=== PATIENT | male | born 1980 | race Caucasian/White ===

== ENCOUNTER 2019-07-26 17:11 | Outpatient (CLI) | payer OTHER | END 2019-07-26 17:12 | disposition home or self-care (01) | LOC: COV 17:11 | PROVIDERS: ATTEND Family Medicine | DX: R05 Cough (principal) ==

== ENCOUNTER 2019-08-10 12:37 | Outpatient (CLI) | payer OTHER ==
--- NOTE | 2019-08-11 02:56 | CT Report ---
Reason: KIDNEY STONES Procedure Date: 08/10/2019 Accession Number: [id number] / [id number] Procedure: CT - Abdomen/Pelvis WO CPT Code: Final Report FULL RESULT: EXAM: CT ABDOMEN AND PELVIS (CT KUB) EXAM DATE: 08/10/2019 12:50 PM. CLINICAL HISTORY: Pain for 4 months. History of kidney stone removal. Kidney stones. COMPARISONS: None. TECHNIQUE: Routine axial helical CT imaging was performed through the abdomen and pelvis without IV contrast. Reconstructions: Coronal and sagittal. In accordance with CT protocol optimization, one or more of the following dose reduction techniques were utilized for this exam: automated exposure control, adjustment of mA and/or KV based on patient size, or use of iterative reconstructive technique. FINDINGS: Lung Bases: Unremarkable. Right Kidney/Ureter: Nonobstructive right renal calculi measuring up to 4 mm. No hydronephrosis or hydroureter. No perinephric fat stranding. Left Kidney/Ureter: Nonobstructive left renal calculi measuring up to 3 mm. No hydronephrosis or hydroureter. Simple cyst at left lower renal pole measuring 3.4 cm. No perinephric fat stranding. Other Solid Organs: Noncontrast images of the solid organs are grossly unremarkable. Gallbladder/Bile Ducts: Unremarkable. Peritoneal Cavity: No free fluid, free air or miley adenopathy. Bowel is grossly unremarkable. Pelvic Organs: No bladder stones or wall thickening. Bladder is underdistended although otherwise unremarkable. Noncontrast images of the visualized pelvic organs are unremarkable. Vasculature: Unremarkable. Other: None. IMPRESSION: 1. Nonobstructive nephrolithiasis. No hydronephrosis or ureteral calculus. 2. Left lower pole renal cyst. No further workup per ACR guidelines. [facility]
== END 2019-08-10 12:38 | disposition home or self-care (01) ==
LOC: DI 12:37
PROVIDERS: ATTEND Specialist
DX: N20.0 Calculus of kidney (principal); N28.1 Cyst of kidney, acquired
CPT/HCPCS: 74176

== ENCOUNTER 2019-11-14 10:09 | Emergency (ER) | payer OTHER ==
--- NOTE | 2019-11-14 11:15 | XRAY Report ---
PROCEDURE: Shoulder 3 View RT INDICATIONS: posterior contusion/pain TECHNIQUE: 3 views of the shoulder were acquired. COMPARISON: None. FINDINGS: Bones: No fractures or dislocations. No suspicious bony lesions. Visualized ribs appear intact. Soft tissues: No suspicious soft tissue calcifications. IMPRESSION: No acute right shoulder fracture or dislocation. Reviewed by: Emery Staley MD on 11/14/2019 11:14 AM PDT Approved by: Emery Staley MD on 11/14/2019 11:14 AM PDT Station ID: [id number]
--- NOTE | 2019-11-14 11:22 | ED Physician Documentation ---
PD HPI UPPER EXT INJURY - Stated complaint Stated Complaint: RT SHOULDER INJ - Chief complaint Chief Complaint: General - History obtained from History obtained from: Patient - History of Present Illness Location: Right, Shoulder Type of injury: Blunt / blow Where injury occurred: Work Timing - duration: Minutes Timing - details: Abrupt onset, Still present Improved by: Rest Worsened by: Moving, Palpating Associated symptoms: No: Weakness, Numbness, Tingling, Swelling Contributing factors: No: Anticoagulated, Prior ortho surgery Similar symptoms before: Has not had sx before Recently seen: Not recently seen - Additonal information Additional information: 39-year-old male is an employee at [employer]. One of the door opening mechanisms fell off of the top part of the door and hit him in the right shoulder posteriorly. He was not knocked over by this he was knocked hard by this, and this was witnessed by his manager semiconductor. His manager semiconductor has asked him to come to the hospital to get evaluated.. The patient himself did not feel that this was entirely necessary. He states he is able to move his arm and good range of motion he has some pain back there and it is not severe. Review of Systems Constitutional: denies: Fever Eyes: denies: Decreased vision Ears: denies: Ear pain Nose: denies: Congestion Throat: denies: Sore throat Cardiac: denies: Chest pain / pressure Respiratory: denies: Dyspnea, Cough GI: denies: Vomiting PD ED PE NORMAL - Vitals Vital signs reviewed: Yes (tachy and hypertensive ) - General General: Alert and oriented X 3, No acute distress, Well developed/nourished - HEENT HEENT: Atraumatic, PERRL, EOMI - Neck Neck: Supple, no meningeal sign, No bony TTP - Respiratory Respiratory: No respiratory distress - Derm Derm: Normal color, Warm and dry, No rash - Extremities Extremities: No deformity, No tenderness to palpate, Normal ROM s pain, No edema, No calf tenderness / cord, Other (There is minimal pain to palpation of the supraspinatous on the right side. There is no other deficit to the right arm/shoulder) - Psych Psych: Normal mood, Normal affect Results - Vitals Vitals: Vital Signs - 24 hr 11/13/ 10:12 Heart Rate 106 H Respiratory 16 Rate Blood Pressure 150/91 H O2 Saturation 98 Oxygen O2 Source Room air PD MEDICAL DECISION MAKING - ED course Complexity details: reviewed results, re-evaluated patient, considered differential, d/w patient ED course: 39-year-old male with a contusion to his right shoulder does not appear to be injured significantly he has a negative x-ray. He will discharged with shoulder contusion. Departure - Departure Disposition: 01 Home, Self Care Clinical Impression: Contusion of right shoulder Qualifiers: Encounter type: initial encounter Qualified Code(s): S40.011A - Contusion of right shoulder, initial encounter Instructions: ED Contusion Shoulder Follow-Up: Gina Wu MD [Primary Care Provider] -
[2019-11-14 11:49] VITALS: BP 135/97
== END 2019-11-14 11:54 | disposition home or self-care (01) ==
LOC: ED 10:09
DX: S40.011A Contusion of right shoulder, initial encounter (principal); W20.8XXA Other cause of strike by thrown, projected or falling object, initial encounter; Y92.511 Restaurant or cafe as the place of occurrence of the external cause; Y99.0 Civilian activity done for income or pay
CPT/HCPCS: 1040M; 73030; 99282; 99283

== ENCOUNTER 2020-09-30 08:21 | Emergency (ER) | payer OTHER ==
--- NOTE | 2020-09-30 08:53 | ED Physician Documentation ---
PD HPI URI - Stated complaint Stated Complaint: EAR PX - Chief complaint Chief Complaint: Heent - History obtained from History obtained from: Patient - Additional information Additional information: Patient comes emergency department chief complaint of muffled hearing and a feeling of congestion in left ear. Patient states he is on the end of a viral upper respiratory infection, and has been doing a lot of coughing lately. He states that it seems with the coughing, his ear has become progressively plugged and he is concerned that he may develop an infection. Patient denies any fevers or chills. No sore throat. No other complaints at this time. He has not noticed any symptoms in his right ear. Review of Systems Ten Systems: 10 systems reviewed and negative Constitutional: reports: Reviewed and negative Eyes: reports: Reviewed and negative Ears: reports: Loss of hearing, Ear pain Nose: reports: Reviewed and negative Throat: reports: Reviewed and negative Cardiac: reports: Reviewed and negative Respiratory: reports: Reviewed and negative GI: reports: Reviewed and negative : reports: Reviewed and negative Skin: reports: Reviewed and negative Musculoskeletal: reports: Reviewed and negative Neurologic: reports: Reviewed and negative Psychiatric: reports: Reviewed and negative Endocrine: reports: Reviewed and negative Immunocompromised: reports: Reviewed and negative PD PAST MEDICAL HISTORY - Past Medical History Past Medical History: Yes Cardiovascular: None Respiratory: None Neuro: None Endocrine/Autoimmune: None GI: None : Kidney stones HEENT: None Psych: None Musculoskeletal: None Derm: None - Past Surgical History Past Surgical History: Yes - Present Medications Home Medications: Ambulatory Orders Medication Instructions Recorded Confirmed Pseudoephedrine HCl 120 mg PO DAILY PRN #12 09/30/20 [Pseudoephedrine ER] - Allergies Allergies/Adverse Reactions: Allergies Allergy/AdvReac Type Severity Reaction Status Date / Time No Known Drug Allergies Allergy Verified 09/30/20 08:24 - Social History Does the pt smoke?: No Smoking Status: Former smoker Does the pt drink ETOH?: Yes Does the pt have substance abuse?: No - Immunizations Immunizations are current?: Yes PD ED PE NORMAL - Vitals Vital signs reviewed: Yes - General General: Alert and oriented X 3, No acute distress - HEENT HEENT: Atraumatic, PERRL, EOMI, Moist mucous membranes, Other (Right ear normal. Left ear with mild dullness and erythema but without thickness or bulging of tympanic membrane.) - Neck Neck: Supple, no meningeal sign - Cardiac Cardiac: RRR, No murmur - Respiratory Respiratory: No respiratory distress, Clear bilaterally - Derm Derm: Warm and dry - Extremities Extremities: No deformity - Neuro Neuro: Alert and oriented X 3 - Psych Psych: Normal mood, Normal affect Results - Vitals Vitals: Vital Signs - 24 hr 09/30/20 08:24 Temperature 36 C L Heart Rate 66 Respiratory 18 Rate Blood Pressure 159/94 H O2 Saturation 96 Oxygen O2 Source Room air PD MEDICAL DECISION MAKING - ED course Complexity details: considered differential, d/w patient ED course: I discussed with the patient that his ear does not appear infected at this time. We have discussed that most likely, he has some eustachian tube dysfunction secondary to his URI, and that a decongestant may be helpful. There is no role for antibiotics at this time. We have discussed home management of symptoms, as well as usual indications for return. Departure - Departure Disposition: 01 Home, Self Care Clinical Impression: URI (upper respiratory infection) Qualifiers: URI type: unspecified viral URI Qualified Code(s): J06.9 - Acute upper respiratory infection, unspecified Acute otalgia Qualifiers: Laterality: left Qualified Code(s): H92.02 - Otalgia, left ear Condition: Stable Instructions: ED URI Viral, ED Otitis Media Serous Adult Prescriptions: Pseudoephedrine HCl [Pseudoephedrine ER] 120 mg PO DAILY PRN #12 PRN Reason: As Needed Per Provider Orders Comments: Your ear at this point in time does not appear infected. You do have some fluid behind your eardrum, which is most likely been forced into that cavity by coughing. However, your eustachian tube is most likely still somewhat swollen from the upper respiratory infection you have had, which makes it difficult for the fluid to drain out from behind the eardrum. We will start you on a decongestant to help with this and hopefully bring you some relief. This is a self-limited condition which will go away on its own. If you begin to develop severe pain in your ear, with or without fever, however, you should have your ear rechecked to be sure infection has not developed.
--- OUTSIDE RECORDS SUMMARY | 2020-09-30 08:58 | EXTERNAL MEDICAL SUMMARY RPT | Continuity of Care Document ---
:1980 Demographics Phone Unavailable Preferred Language Unknown Marital Status Unknown Mandaen Affiliation Unknown Race Unknown Ethnic Group Unknown Author Organization [place] Address [address] [phone] Phone Allergies Encounters Medications Problems Results
[2020-09-30 09:00] VITALS: BP 162/96
== END 2020-09-30 09:06 | disposition home or self-care (01) ==
LOC: ED 08:21
DX: J06.9 Acute upper respiratory infection, unspecified (principal); B97.89 Other viral agents as the cause of diseases classified elsewhere; H92.02 Otalgia, left ear; Z87.891 Personal history of nicotine dependence
CPT/HCPCS: 99282; 99284